=== PATIENT | female | born 1980 | race Caucasian/White ===

== ENCOUNTER 2019-12-25 04:14 | Inpatient (IN) ==
[2019-12-25] MEDS ORDERED: LEVSIN-SL SL ONE (04:56)
[2019-12-25] MEDS ORDERED: ZOFRAN IV ONE (04:56)
[2019-12-25] MEDS ORDERED: NS 1,000 ML IV ONE (04:56)
--- NOTE | 2019-12-25 05:03 | PROVIDER DOCUMENTATION ---
HPI-General Adult - General Chief Complaint: Sores/Lesions Stated Complaint: SORES ON HANDS AND BACK, NAUSEA Time Seen by Provider: 12/25/19 04:23 Source: patient Allergies/Adverse Reactions: Patient Allergies Allergy/AdvReac Type Severity Reaction Status Date / Time metoclopramide HCl * AdvReac Intermediate crawling Verified 12/25/19 04:35 [From Reglan] skin nalbuphine HCl * AdvReac Intermediate tachycardia Verified 12/25/19 04:35 [From Nubain] HTN blood in stool NSAIDS (Non-Steroidal AdvReac Intermediate blood in Verified 12/25/19 04:35 Anti-Inflamma stool/stomach pain Home Medications: Home Medication List Medication Instructions Recorded Confirmed Last Taken Type NK [No Home Medications] 10/20/19 12/25/19 Unknown History - History of Present Illness -Gen Adult Nature of Presenting Problems: Presents to the with multiple complaints. She states that she has noticed s pots on her hands and her back that she thinks is a staph infection. She states that she has had some nausea and vomiting and lower suprapubic abdominal pain. She states she feels as if she is dying. She has noticed some blood in her urine. She is jaundiced and when asked about it she stated that she noticed this yesterday. She denies any previous liver problems but does admit to IV meth use. Her or boyfriend is here with similar symptoms and is also jaundiced. They both use IV drugs. Review of Systems - Adult - REVIEW OF SYSTEMS - ADULT Constitutional: reports: see HPI. denies: chills, fever Eyes: reports: no symptoms reported Ears, Nose, Mouth & Throat: reports: no symptoms reported Cardiovascular: reports: no symptoms reported Respiratory: reports: no symptoms reported Gastrointestinal: reports: see HPI, abdominal pain, nausea, vomiting. denies: constipation, diarrhea Genitourinary: reports: see HPI, hematuria. denies: dysuria, frequency Musculoskeletal: reports: no symptoms reported Integumentary: reports: see HPI, skin sores/ulcer Neurological: reports: no symptoms reported Psychiatric: reports: no symptoms reported Endocrine: reports: see HPI, change in skin pigment Hematologic/Lymphatic: reports: no symptoms reported Allergic/Immunologic: reports: no symptoms reported All Other Systems: Reviewed and Negative Past History - Adult - PAST MEDICAL HISTORY-ADULT Review of Records: reports: Old Records Reviewed Major Childhood Illnesses: reports: denies history Cardiovascular: reports: denies history Respiratory: reports: asthma, lung disease, other (tobacco abuse, histoplasmosis) Gastrointestinal: reports: denies history Obstetrical/Gynecological: reports: denies history Genitourinary: reports: kidney stones, other (interstitial cystitis ) Musculoskeletal: reports: denies history Neurological: reports: denies history Psychiatric: reports: anxiety Endocrine/Immune: reports: other (Histoplasmosis) Other Conditions: reports: denies history - PRIOR SURGERIES/PROCEDURES Surgical/Procedure History: reports: cholecystectomy, , tonsillectomy - PRIOR HOSPITALIZATIONS Prior Hospitalizations: reports: none - IMMUNIZATION STATUS Childhood Immunizations: See Nurse Assessment Flu Vaccine: See Nurse Assessment - FAMILY HISTORY Family History: reviewed, not pertinent - SOCIAL HISTORY Substance Use: amphetamines Physical Exam-General - CONSTITUTIONAL General Appearance: alert, mild distress (uncomofrtable appearing), anxious - EYES Eyes: PERRL/EOMI, scleral icterus - HEAD, EARS, NOSE, MOUTH & THROAT HENMT: normocephalic/atraumatic - NECK Neck: supple, normal inspection - RESPIRATORY Respiratory: chest non-tender, lungs clear, no pleuratic chest pain, no respi ratory distress - CARDIOVASCULAR Cardiovascular: normal peripheral pulses, regular rate, rhythm, no murmur - GASTROINTESTINAL (ABDOMEN) Abdominal Exam: normal bowel sounds, soft, tenderness (suprapubic) - MUSCULOSKELETAL Back Exam: normal inspection Extremity: non-tender, normal gait, normal inspection, no pedal edema - SKIN Integumentary: warm/dry, jaundice, other (small sores on back and fingers) - NEUROLOGIC Neurologic: grossly normal - PSYCHIATRIC Psych/Mental Status: oriented x 3, anxious Progress - PLAN OF CARE/RESULTS Progress/Plan/Lab Results: Vital Signs - 8 hr 12/25/19 04:19 12/25/19 04:27 Temperature 99.1 F Pulse Rate 109 H Respiratory Rate 18 Blood Pressure 118/65 O2 Sat by Pulse Oximetry 97 Orders Category Date Time Status ED: Urine Bedside ORDERED Care 12/25/19 04:56 Active Saline Loc NOW Care 12/25/19 04:56 Active CBC WITH ELECTRONIC DIFF [HEME] Stat Lab 12/25/19 04:55 Uncollected CK TOTAL [CHEM] Stat Lab 12/25/19 04:56 Uncollected COMPREHENSIVE METABOLIC PANEL [CHEM] Stat Lab 12/25/19 04:56 Uncollected HEPATITIS PROFILE [HH] Stat Lab 12/25/19 04:56 Uncollected LIPASE [CHEM] Stat Lab 12/25/19 04:56 Uncollected URINALYSIS W/POSS RFLX CULT [URINALYSIS] Stat Lab 12/25/19 04:56 Uncollected URINE DRUG SCREEN Stat Lab 12/25/19 04:56 Uncollected 0.9% Sodium Chloride Inj [Ns] 1,000 ml Med 12/25/19 04:56 Active IV 999 mls/hr Hyoscyamine Subl [Levsin-Sl] Med 12/25/19 04:56 Discontinued 0.25 mg SL NOW ONE Ondansetron [Zofran] Med 12/25/19 04:56 Discontinued 4 mg IV NOW ONE Result Diagrams: 12/25/19 05:08 12/25/19 05:08 - CONSULTS/PCP/HOSPITALIST Notification #1 *Consult/PCP/Hospitalist*: Corrine BRAY for Hospitalist Time Discussed: 08:39 Consult Disposition: Will see in ED, Admit - CHANGE OF SHIFT REPORT (ED Provider) 1 Report Given and Care Transferred to:: Dr Aguirre Time of Transfer: 07:00 Items Pending: Ultrasound Results, Other (final dispo) Departure - Departure Date of Disposition Decision: 12/25/19 Time of Disposition Decision: 08:39 DIAGNOSIS: UTI (urinary tract infection), Jaundice, Abdominal pain, Nausea and vomiting, Skin lesions, Substance abuse, Total bilirubin, elevated Disposition: ADMITTED INPATIENT 09 Certified Medical Emergency: Emergent Condition: Fair Referrals and Follow-Ups: None,PCP [Primary Care Provider] - - Critical Care Note This patient required my direct & personal management of CC.: No Attestation - Physician/ KEI Attestation Patient care was provided by Advanced Practice Provider:: No The physician spent face to face time with patient:: Yes Advanced Practice Provider documentation review:: Supervising physician onsite and consulted in the evaluation and care of this patient. The physician did have a face to face encounter with the patient.
[2019-12-25 05:30] LABS: URINE SOURCE CLEAN CATCH
[2019-12-25 05:37] LABS: BILIRUBIN URINE MODERATE (NEGATIVE); BLOOD URINE SMALL (NEGATIVE); COLOR YELLOW; GLUCOSE URINE NEGATIVE (NEGATIVE); KETONE URINE NEGATIVE (NEGATIVE); LEUKOCYTES URINE NEGATIVE (NEGATIVE); NITRITE URINE POSITIVE (NEGATIVE); PROTEIN URINE 50 mg/dL (NEGATIVE); SP GRAVITY URINE 1.028; TURBIDITY URINE HAZY (CLEAR); UROBILINOGEN URINE 6 mg/dL (NORMAL)
[2019-12-25 05:41] LABS: BASO# 0.05 X1000 (0.0-0.2); EOS# 0.06 X1000 (0.0-0.7); EOS% 1.2 % (0.0-10.0); HEMATOCRIT 31.6 % (37.0-47.0); HEMOGLOBIN 10.6 g/dL (12.0-16.0); LYMPH# 1.65 X1000 (1.2-3.4); LYMPH% 33.2 % (20.5-51.1); MCHC 33.5 g/dL (33-37); MCV 89.5 FL (81-99); MONO# 0.58 X1000 (0.11-0.59); MONO% 11.7 % (1.7-9.3); MPV 10.6 FL (7.4-10.4); NEUT# 2.63 X1000 (1.4-6.5); NEUT% 52.9 % (42.2-75.2); PLT 347 X1000 (130-400); RBC 3.53 XMIL (4.2-5.4); RDW 15.7 % (11.5-14.5); WBC 4.97 X1000 (4.8-10.8)
[2019-12-25] MEDS ORDERED: ROCEPHIN 1 GM in NS 50 ML IV ONE (05:54)
[2019-12-25 06:16] LABS: INR 1.04; PROTIME 13.7 Seconds (11.0-16.0)
[2019-12-25 06:29] LABS: UR AMPHETAMINES QUAL PRESUMPTIVE POSITIVE (NONE DETECT); UR BARBITUATES QUAL NONE DETECTED (NONE DETECT); UR BENZODIAZEPIN QUAL NONE DETECTED (NONE DETECT); UR CANNABINOIDS QUAL NONE DETECTED (NONE DETECT); UR COCAINE QUAL NONE DETECTED (NONE DETECT); UR METHADONE QUAL NONE DETECTED (NONE DETECT); UR OPIATES QUAL NONE DETECTED (NONE DETECT); UR OXYCODONE QUAL NONE DETECTED (NONE DETECT); UR PCP QUAL NONE DETECTED (NONE DETECT)
[2019-12-25 06:34] LABS: AGAP 11; ALBUMIN 3.1 g/dL (3.5-5.0); ALKALINE PHOSPHATASE 523 U/L (32-104); BUN 13 mg/dL (8-22); CHLORIDE 102 mmol/L (98-107); CK TOTAL 59 U/L (24-173); COSMO 283; CREATININE 0.7 mg/dL (0.5-0.9); ESTIMATED GFR > 60; GLUCOSE 153 mg/dL (70-104); GOT 183 U/L (10-30); GPT 320 U/L (10-36); LIPASE 70 U/L (13-60); POTASSIUM 4.2 mmol/L (3.5-5.1); SODIUM 140 mmol/L (136-145); TCO2 27 mmol/L (25-35); TOTAL BILIRUBIN 7.63 mg/dL (0.20-1.00); TOTAL PROTEIN 6.2 g/dL (6.3-8.3)
[2019-12-25 07:25] LABS: URINE WBC <10 /HPF (<10)
[2019-12-25 07:26] LABS: UR EPITHELIAL CELLS <10 /HPF (<10); URINE BACTERIA 4+ /HPF
[2019-12-25] MEDS ORDERED: DILAUDID IV ONE (07:47)
--- NOTE | 2019-12-25 08:25 | Diag Imaging Result Doc PS360 ---
EXAM: US GB < RUQ (LIMITED) INDICATION: jaundice, transaminitis, elevated tbili COMPARISON: None. FINDINGS: There has been a prior cholecystectomy. The measured common bile duct diameter is normal. The liver is normal in size and echotexture. No discrete hepatic mass is identified. Portal venous flow is hepatopetal. The visualized portion of the pancreas is unremarkable. The aorta and IVC are grossly unremarkable. The right kidney is grossly unremarkable. IMPRESSION: Essentially unremarkable right upper quadrant abdominal ultrasound. Electronically signed by Danny Retana 12/25/2019 8:23 AM
--- NOTE | 2019-12-25 09:42 | HISTORY AND PHYSICAL ---
HISTORY OF PRESENT ILLNESS: Ms. Gonzales is a 39-year-old. She has no doctor. She is homeless. Her and her both came to the emergency room. She has been feeling bad for the last 2 weeks. She noticed some sores, one on her bottom and a couple on her arm and hand. She does use IV methamphetamine. In the emergency room, it appears she has acute hepatitis, suspect hepatitis A. PAST MEDICAL AND SURGICAL HISTORY: She has had her gallbladder out. She has had tonsillectomy. She has been diagnosed with endometriosis and interstitial cystitis. I do not have further details on that. She has had numerous surgeries. I think a lot of them were in finding the endometriosis and laparoscopic type surgeries. FAMILY HISTORY: She said is pretty noncontributory, although she does not have much contact with her family. SOCIAL HISTORY: She uses IV methamphetamine. Denies any alcohol. REVIEW OF SYSTEMS: General: She feels like she has lost weight. Appetite is diminished. Kind of a low-grade nausea. No change in visual or hearing acuity. HEENT really unremarkable. Neck: Supple. No adenopathy appreciated or reported. Cardiovascular: No chest pain or tachy palpitations. Gastrointestinal and Genitourinary: No gross hematuria or dysuria. Musculoskeletal and Neurologic: No significant complaints. PHYSICAL EXAMINATION: Temperature 97.8 degrees, pulse 89, respirations 16, blood pressure 134/87. Pupils are equal and round. No distended neck veins. Lungs are clear in all lung hernández. Cardiovascular Examination: Regular rhythm and rate without murmur or S3. Abdomen is soft. Skin is warm and dry. She had no pattern hepatomegaly that I could appreciate on abdominal exam. She says her bowels are moving pretty regular. No complaints of dysuria or gross hematuria at this time. Sclerae mildly icteric. LABORATORY DATA: White count 4970, hematocrit is 31, platelet count is 347,000. Sodium 140, potassium 4.2, chloride 102, BUN 13, creatinine 0.7. Total bilirubin is 7.63, AST 183, ALT is 320, alkaline phosphatase is 523, total protein is 6.2, and lipase is 70. Drug screen positive for amphetamines. Negative for opiates, oxycodone, methadone, barbiturates, phencyclidine, benzodiazepines, cocaine, and cannabinoids. Urinalysis, 4+ bacteria, 10 to 20 red blood cells. Abdominal ultrasound done this morning, essentially unremarkable, right upper quadrant abdominal ultrasound. ASSESSMENT AND PLAN: 1. Acute hepatitis, suspect hepatitis A. Her appears to have the same. They are homeless. I am going to give her some intravenous fluids. We are going to encourage oral intake and we will see what the hepatitis profile shows. Of coarse, needs to be in isolation. 2. History of endometriosis. Aware. 3. History of interstitial cystitis. Aware. She does have sediment in the urine and so we will send urine for culture. Of course, will send off blood cultures. She got a dose of ceftriaxone. I think we will continue ceftriaxone 1 g every 24 hours just to cover for urinary tract. We will get social service to help as far as discharge planning. cc: Solomon Brumfield MD
[2019-12-25] MEDS ORDERED: ZOFRAN IV PRN (10:00)
[2019-12-25] MEDS: NS 1,000 ML IV SCH (12:07)
[2019-12-25] MEDS: ULTRAM PO PRN ×2 (12:59→19:00)
[2019-12-26] MEDS: ULTRAM PO PRN ×2 (05:56→15:42)
[2019-12-26] MEDS: NS 1,000 ML IV SCH ×2 (05:59→15:45)
[2019-12-26 07:15] LABS: AGAP 9; ALB/GLOB RATIO 0.8; ALBUMIN 2.6 g/dL (3.5-5.0); ALKALINE PHOSPHATASE 456 U/L (32-104); BUN 16 mg/dL (8-22); CALCIUM 7.8 mg/dL (8.8-10.2); CHLORIDE 101 mmol/L (98-107); COSMO 276; CREATININE 0.6 mg/dL (0.5-0.9); ESTIMATED GFR > 60; GLUCOSE 188 mg/dL (70-104); GOT 160 U/L (10-30); GPT 219 U/L (10-36); POTASSIUM 3.7 mmol/L (3.5-5.1); SODIUM 135 mmol/L (136-145); TCO2 25 mmol/L (25-35); TOTAL BILIRUBIN 4.37 mg/dL (0.20-1.00); TOTAL PROTEIN 5.7 g/dL (6.3-8.3)
[2019-12-26] MEDS: ROCEPHIN 1 GM in NS 50 ML IV SCH (09:02)
[2019-12-26] MEDS: MORPHINE IV PRN ×2 (11:23→18:10)
[2019-12-26 13:04] LABS: HEPATITIS PROFILE ACUTE REVISED
--- NOTE | 2019-12-26 13:50 | PROGRESS NOTE ---
DATE: 12/26/2019 SUBJECTIVE: This patient is still complaining of right upper quadrant pain. She has been tolerating her diet, no bowel movement so far. I will continue to monitor. Likely this patient has an acute hepatitis, probably hepatitis A. PHYSICAL EXAMINATION: Vital signs: Temperature 98.3, pulse 74, respiratory rate 18, blood pressure 108/49, oxygen saturation 100% on room air. HEENT: Head normocephalic. No trauma. Icteric sclerae. Neck: Supple. No JVD. No masses. Central trachea. Chest: Clear to auscultation. No wheezing. No rales. Abdomen: Soft. Tenderness to palpation at the level of the right upper quadrant. Negative signs of peritoneal irritation. Extremities: No edema. No clubbing. No cyanosis. Neurological: Patient is awake and alert. She is oriented. No focal deficits. LABORATORY: Sodium 135, potassium 3.7, chloride 101, bicarbonate 25, BUN 16, creatinine 0.6, glucose 188, calcium 7.8, bilirubin is 4.3, AST 160, ALT 219, alkaline phosphatase 456. ASSESSMENT AND PLAN: 1. Acute hepatitis, suspected hepatitis A. She has been hospitalized as well as the . They both do IV drugs, amphetamines. I had a really long conversation with this patient about drug use. She is also a smoker. 2. History of endometriosis aware. 3. History of interstitial cystitis. We have a positive culture that showed gram-negative rods. She is not sure if she has symptoms or not. She has been placed on ceftriaxone. 4. Tobacco abuse and drug use. This patient has been highly advised against tobacco and drug use. I will continue with daily cessation education. cc: Aaron Sahu MD
[2019-12-27] MEDS: MORPHINE IV PRN ×4 (00:23→21:43)
[2019-12-27 07:01] LABS: BASO# 0.03 X1000 (0.0-0.2); BASO% 0.8 % (0.0-0.8); EOS# 0.09 X1000 (0.0-0.7); EOS% 2.3 % (0.0-10.0); HEMATOCRIT 28.5 % (37.0-47.0); HEMOGLOBIN 9.2 g/dL (12.0-16.0); LYMPH# 1.65 X1000 (1.2-3.4); LYMPH% 41.4 % (20.5-51.1); MCH 29.4 PG (27-31); MCHC 32.3 g/dL (33-37); MCV 91.1 FL (81-99); MONO# 0.53 X1000 (0.11-0.59); MONO% 13.3 % (1.7-9.3); MPV 10.5 FL (7.4-10.4); NEUT# 1.69 X1000 (1.4-6.5); NEUT% 42.2 % (42.2-75.2); PLT 293 X1000 (130-400); RBC 3.13 XMIL (4.2-5.4); RDW 16.7 % (11.5-14.5); WBC 3.99 X1000 (4.8-10.8)
[2019-12-27 07:21] LABS: AGAP 7; ALB/GLOB RATIO 0.7; ALBUMIN 2.3 g/dL (3.5-5.0); ALKALINE PHOSPHATASE 453 U/L (32-104); BUN 15 mg/dL (8-22); CALCIUM 7.8 mg/dL (8.8-10.2); CHLORIDE 104 mmol/L (98-107); COSMO 269; CREATININE 0.5 mg/dL (0.5-0.9); ESTIMATED GFR > 60; GLUCOSE 104 mg/dL (70-104); GOT 130 U/L (10-30); GPT 179 U/L (10-36); POTASSIUM 4.1 mmol/L (3.5-5.1); SODIUM 134 mmol/L (136-145); TCO2 23 mmol/L (25-35); TOTAL BILIRUBIN 2.72 mg/dL (0.20-1.00); TOTAL PROTEIN 5.8 g/dL (6.3-8.3)
[2019-12-27] MEDS: NS 1,000 ML IV SCH ×3 (07:58→21:44)
[2019-12-27] MEDS: ROCEPHIN 1 GM in NS 50 ML IV SCH (08:38)
[2019-12-27] MEDS: CENTRUM SILVER PO SCH (11:36)
--- NOTE | 2019-12-27 13:32 | PROGRESS NOTE ---
DATE: 12/27/2019 SUBJECTIVE: The patient is still complaining of right upper quadrant pain. Her LFTs are trending down. I will add multivitamins to her medications. I will continue with IV fluids and I will continue to monitor this patient closely. She has hepatitis A. OBJECTIVE: Vital Signs: Temperature 98.8 degrees, pulse 79, respiratory rate 18, blood pressure 123/61, oxygen saturation 100% on room air. HEENT: Head normocephalic. No trauma. PERRLA. Neck: Supple. No JVD. No masses. Central trachea. Chest: Clear to auscultation. No wheezing. No rales. Abdomen: Soft tenderness to palpation at the level of the right upper quadrant. Negative signs of peritoneal irritation. Extremities: No edema. No clubbing. No cyanosis. Skin: Slightly jaundice, icteric sclerae. Neurologic: Awake, alert, she is oriented. LABORATORY: WBC 3.9, hemoglobin 9.2, hematocrit 28.5, platelets 293,000. Sodium 134, potassium 4.1, chloride 104, bicarbonate 23, BUN 15, creatinine 0.5, glucose 104, calcium 7.8. AST 130, ALT 179, alkaline phosphatase 453, albumin 2.3. ASSESSMENT AND PLAN: 1. Acute hepatitis A, likely due to IV drug use. As per the patient, she has been using amphetamines. I had a really long conversation with this patient about drug use. She is also a smoker, I will continue with same management, IV fluids. I will add multivitamins. 2. History of endometriosis. Aware. 3. History of interstitial cystitis. Her urine culture showed Escherichia coli. I will continue with ceftriaxone for now. 4. Tobacco abuse and drug use especially IV, this patient has been highly advised against drug use and tobacco use. I will continue with daily cessation education. cc: Aaron Sahu MD
[2019-12-27] MEDS: ULTRAM PO PRN (18:52)
[2019-12-28] MEDS: MORPHINE IV PRN ×4 (04:19→23:02)
[2019-12-28 07:36] LABS: AGAP 8; ALB/GLOB RATIO 0.8; ALBUMIN 2.6 g/dL (3.5-5.0); ALKALINE PHOSPHATASE 408 U/L (32-104); BUN 18 mg/dL (8-22); CALCIUM 7.9 mg/dL (8.8-10.2); CHLORIDE 101 mmol/L (98-107); COSMO 277; CREATININE 0.5 mg/dL (0.5-0.9); ESTIMATED GFR > 60; GLUCOSE 114 mg/dL (70-104); GOT 120 U/L (10-30); GPT 166 U/L (10-36); POTASSIUM 4.1 mmol/L (3.5-5.1); SODIUM 137 mmol/L (136-145); TCO2 28 mmol/L (25-35); TOTAL BILIRUBIN 2.34 mg/dL (0.20-1.00); TOTAL PROTEIN 5.8 g/dL (6.3-8.3)
[2019-12-28] MEDS ORDERED: VANCOMYCIN IV PER PHARMACY MISC SCH (07:45)
[2019-12-28] MEDS ORDERED: VANCOMYCIN 1,600 MG in NS 250 ML IV ONE (09:00)
[2019-12-28] MEDS: NS 1,000 ML IV SCH ×2 (10:15→16:52)
[2019-12-28] MEDS: CENTRUM SILVER PO SCH (10:16)
[2019-12-28] MEDS: ROCEPHIN 1 GM in NS 50 ML IV SCH (10:16)
[2019-12-28] MEDS: ULTRAM PO PRN ×2 (11:20→17:44)
--- NOTE | 2019-12-28 13:49 | PROGRESS NOTE ---
DATE: 12/28/2019 SUBJECTIVE: The patient seems to be getting better. She is still complaining of right upper quadrant pain. We have a positive culture from a wound that she has on her back that showed gram- positive cocci. I will wait for the final bacteria and sensitivity. Hopefully, after that, I will be able to discharge this patient. OBJECTIVE: Vital Signs: Temperature 98 degrees, pulse 72, respiratory rate 19, blood pressure 117/82, oxygen saturation 98 on room air. HEENT: Head normocephalic. No trauma. PERRLA. Neck: Supple. No JVD. No masses. Central trachea. Chest: Clear to auscultation. No wheezing. No rales. Abdomen: Soft, nontender, nondistended. Right upper quadrant discomfort/pain. Negative signs of peritoneal irritation. Back: She have a couple lesions. One with some redness around it, around 3 cm in diameter. One of them is draining some pus and I feel it has been completely drained. We will continue to monitor. Extremities: No edema, no clubbing, no cyanosis. Skin: Slightly jaundiced. Icteric sclerae. Laboratory: Sodium 137, potassium 4.1, chloride 101, bicarbonate 28, BUN 18, creatinine 0.5, glucose 114, calcium 7.9. AST 120, ALT 166, alkaline phosphatase 408, bilirubin 2.3. ASSESSMENT AND PLAN: 1. Acute hepatitis A, likely due to intravenous drug use. Liver function tests trending down. Continue with the same management. 2. Cellulitis with abscess on her lower back. This has been drained. It looks clean. It is growing gram-positive cocci. She has been placed on vancomycin. I will wait for the final sensitivity. 3. History of endometriosis, aware. 4. History of cystitis. She has a urine culture that showed Escherichia coli. Continue with ceftriaxone as well. 5. Tobacco abuse and drug use, especially intravenous drugs. This patient has been highly advised against intravenous drugs and tobacco use. I will continue with daily cessation education. cc: Aaron Sahu MD
[2019-12-28] MEDS: VANCOMYCIN 1 GM/NS 1 GM/250 ML IVPB IV SCH (21:30)
[2019-12-29] MEDS: ULTRAM PO PRN ×2 (00:39→10:44)
[2019-12-29] MEDS: NS 1,000 ML IV SCH (05:19)
[2019-12-29 07:23] LABS: AGAP 7; ALB/GLOB RATIO 0.7; ALBUMIN 2.6 g/dL (3.5-5.0); ALKALINE PHOSPHATASE 358 U/L (32-104); BUN 16 mg/dL (8-22); CHLORIDE 102 mmol/L (98-107); COSMO 273; CREATININE 0.5 mg/dL (0.5-0.9); ESTIMATED GFR > 60; GLUCOSE 104 mg/dL (70-104); GOT 110 U/L (10-30); GPT 146 U/L (10-36); POTASSIUM 4.1 mmol/L (3.5-5.1); SODIUM 136 mmol/L (136-145); TCO2 27 mmol/L (25-35); TOTAL BILIRUBIN 1.98 mg/dL (0.20-1.00); TOTAL PROTEIN 6.1 g/dL (6.3-8.3)
[2019-12-29] MEDS: MORPHINE IV PRN (07:38)
[2019-12-29 07:40] VITALS: BP 119/54
[2019-12-29] MEDS: ROCEPHIN 1 GM in NS 50 ML IV SCH (07:46)
[2019-12-29] MEDS: CENTRUM SILVER PO SCH (10:15)
[2019-12-29] MEDS: VANCOMYCIN 1 GM/NS 1 GM/250 ML IVPB IV SCH (10:15)
[2019-12-29] MEDS ORDERED: BACTROBAN OINTMENT TOP SCH (10:30)
--- NOTE | 2019-12-29 16:13 | DISCHARGE SUMMARY ---
ADMISSION DATE: 12/25/2019 DISCHARGE DATE: 12/29/2019 DISCHARGE DIAGNOSES: 1. Acute hepatitis A, likely due to IV drug use. 2. IV drug use with a positive urine toxicology that showed amphetamines. 3. Cellulitis with small abscess on her back with positive culture that showed methicillin- resistant Staphylococcus aureus. Basically resolved. No drainage. 4. History of endometriosis. 5. Tobacco abuse. 6. Urinary tract infection. PROCEDURES PERFORMED: Abdomen ultrasound dated 12/25/2019. Impression: Essentially unremarkable right upper quadrant abdominal ultrasound. HOSPITAL COURSE: 39-year-old female with a past medical history of interstitial cystitis, endometriosis, tobacco use and drug use, admitted on 12/25/2019. As per the patient, she is homeless and presented to the emergency department with fatigue, some yellowish coloration of the skin, right upper quadrant pain and some sores on her back, arm and hand. Urine toxicology is positive for amphetamines and as per the patient, she does use IV drugs. Hepatitis panel showed hepatitis A. Urine analysis is positive for infection and actually grew Escherichia coli. She was placed on antibiotics with ceftriaxone. She also has been getting IV fluids. She was complaining of a severe pain at the level of the right upper quadrant and she received a low dose of morphine and also tramadol, she has some small lesions and 1 of them on her back was draining some pus, which was clean and now is not draining anything. The wound care nurse already took care of that and actually she has recommended Bactroban cream and to keep the lesion clean until it is completely gone. The patient has been getting better on a daily basis. Her LFTs are trending down also on a daily basis, all of them including bilirubin, AST, ALT, and alkaline phosphatase 8. I had a really long conversation with this patient about drug use and now that she has hepatitis I told her that she can no longer do drugs. I said that she needs to stay away from also alcohol for at least 3 months or more. She needs to get a primary doctor which is going to be really difficult because apparently this patient is homeless. She will be discharged today. senior consulting manager and social insurance administrator already evaluated the patient. They have provided a list of places that they can call and probably go. She seems to be stable. She is tolerating p.o. She is ambulating. She seems to be having no issues today. OBJECTIVE: Vital Signs: Temperature 97.8 degrees, pulse 65, respiratory rate 16, blood pressure 118/54. Oxygen saturation 99 on room air. HEENT: Head normocephalic. No trauma. PERRLA. Icteric sclerae. Neck: Supple. No JVD. No masses. Central trachea. Chest: Clear to auscultation. No wheezing. No rales. Abdomen: Soft. Some tenderness to palpation at the level of the right upper quadrant. Extremities: No edema. No clubbing. No cyanosis. On her back, she has a couple of lesions, but 1 of then is a bit red, used to be draining, but now is completely dry. Neurological: The patient is awake, alert. She is oriented x3. No focal deficits. LABORATORY: Sodium 136, potassium 4.1, chloride 102, bicarbonate 27, BUN 16, creatinine 0.5. Glucose 104, calcium 8. AST 110, ALT 101, 146, alkaline phosphatase 358, albumin 2.6. DISCHARGE MEDICATIONS: Keflex 500 mg p.o. q.12 hours, Centrum Silver 1 tablet p.o. daily and tramadol 50 mg p.o. q.6 hours as needed for pain x15 pills. Again, I had a long conversation with this patient about alcohol and drugs especially. She cannot do drugs again and she needs to avoid alcohol for at least 3 months or more to avoid liver problems. She seems to understand that. cc: Aaron Sahu MD
== END 2019-12-29 12:55 | disposition home or self-care (01) | DRG 442 ==
LOC: ED 04:14 → EDIPHOLD 09:10 → SUATTDRO 09:10 → 3N 10:49
PROVIDERS: ATTEND Internal Medicine